=== PATIENT | female | born 1975 | race Caucasian/White ===

== ENCOUNTER 2023-07-23 12:38 | Outpatient (CLI) | payer OTHER, SELFPAY ==
--- NOTE | ~2023-07-23 | MR_ITS ---
EXAMINATION: MR knee RT wo con DATE: 07/23/2023 13:47 INDICATION: Right knee pain. Loose body in knee. TECHNIQUE: Magnetic resonance imaging (MRI) of the right knee was performed without intravenous contr ast. Sequences included axial PD-weighted FS FSE, coronal PD-weighted FSE and PD-weighted FS FSE, sag ittal PD-weighted FSE, and sagittal T2-weighted FS FSE. COMPARISON: None. FINDINGS: Medial compartment: There is a radial tear of posterior horn of medial meniscus. There is partial-thickness cartilage los s of femoral condyle, deep at the central articular surface. There is cartilage surface irregularity of tibial condyle. Lateral compartment: Lateral meniscus is normal. There is cartilage surface irregularity of tibial condyle and femoral con dyle. Patellofemoral compartment: There is full-thickness cartilage loss of patellar median ridge, medial facet, and lateral facet. Tro chlear cartilage is normal. Osteophytes are noted. Ligaments and tendons: The anterior and posterior cruciate ligaments are normal. There is edema around medial collateral lig ament, consistent with mild sprain. There are changes of prior sprain of fibular collateral ligament characterized increased signal intensity proximally. There is mild patellar tendinopathy. Fluid: There is a small knee joint effusion. There is trace fluid in a Wong's cyst. There is a 12 mm loose body in the anterior intercondylar notch. IMPRESSION: 1. Severe chondrosis of patellofemoral compartment, moderate chondrosis of medial compartment, and mi ld chondrosis of lateral compartment. 2. Tear of medial meniscus. 3. Small knee joint effusion with loose body. Reviewed, dictated and finalized at location E. [facility] [employer] IMPRESSION: 1. Severe chondrosis of patellofemoral compartment, moderate chondrosis of medi al compartment, and mild chondrosis of lateral compartment. 2. Tear of medial meniscus. 3. Small knee joint effusion with loose body.
== END 2023-07-23 12:39 ==
PROVIDERS: PCP Family Medicine; Visit Provider Orthopaedic Surgery
DX: M23.41 Loose body in knee, right knee (principal); M25.461 Effusion, right knee; S83.241A Other tear of medial meniscus, current injury, right knee, initial encounter; X58.XXXA Exposure to other specified factors, initial encounter
CPT/HCPCS: 73721